=== PATIENT | female | born 1940 | race Caucasian/White ===

== ENCOUNTER 2019-12-06 13:03 | Outpatient (CLI) | payer MEDICARE, SELFPAY ==
[2019-12-06 15:40] LABS: Basophils Absolute Auto 0.12 K/mm3 (0.00-0.10); Eosinophils Absolute Auto 0.43 K/mm3 (0.02-0.50); Eosinophils Percent Auto 3.6 % (1.0-6.0); Hematocrit 44.2 % (35.0-42.0); Hemoglobin 13.7 g/dL (11.7-13.8); Immature Granulocyte Absolute 0.13 K/mm3 (0.00-0.00); Immature Granulocyte Percent A 1.1 % (0.0-0.0); Lymphocytes Absolute Auto 2.61 K/mm3 (1.10-4.50); Mean Corpuscular Hemoglobin 29.5 pg (27.0-31.0); Mean Corpuscular Volume 95.3 fL (78.0-102.0); Mean Platelet Volume 9.4 fl (9.2-11.8); Monocytes Absolute Auto 0.73 K/mm3 (0.10-0.90); Monocytes Percent Auto 6.1 % (2.0-11.0); Neutrophils Absolute Auto 7.9 K/mm3 (1.7-7.2); Neutrophils Percent Auto 66.2 % (50.0-70.0); Platelet Count Result 355 K/mm3 (150-420); Red Blood Count 4.64 M/mm3 (4.20-5.40); Red Cell Distribution Width 19.4 % (11.6-14.4); White Blood Count 11.9 K/mm3 (4.8-10.8)
[2019-12-06 16:33] LABS: Anion Gap 13.1 mmol/L (7-16); Blood Urea Nitrogen 23 mg/dL (7-18); Calcium 9.8 mg/dL (8.5-10.1); Carbon Dioxide 31 mmol/L (21-32); Chloride 103 mmol/L (98-108); Estimated Glomerular Filt Rate 40; Glucose 84 mg/dL (70-99); Osmolality Calculated 298 mOsm/kg (285-295); Potassium 4.1 mmol/L (3.5-5.1); Sodium 143 mmol/L (136-145)
== END 2019-12-06 13:04 | disposition home or self-care (01) ==
PROVIDERS: PCP Family Medicine; Visit Provider Specialist
DX: R19.7 Diarrhea, unspecified (principal); I10 Essential (primary) hypertension; D64.9 Anemia, unspecified; I48.91 Unspecified atrial fibrillation
CPT/HCPCS: 36415; 80048; 85025; 87324

== ENCOUNTER 2020-01-23 15:42 | Outpatient (CLI) | payer MEDICARE, SELFPAY ==
--- NOTE | ~2020-01-23 | XR_ITS ---
EXAMINATION: XR abdomen obstructive series EXAM DATE: 01/23/2020 16:11 INDICATION: Lower abdominal pain. TECHNIQUE: Frontal upright projection of the upper abdomen, frontal projection of the lower abdomen f or interpretation. There is no prior study for comparison. FINDINGS: There is expected amount of colonic stool and gas. No small bowel dilation, nonobstructiv e bowel gas pattern. There are no suspicious calcifications identified. There is no organomegaly suspected. There is moderate cervical lumbar dextroscoliosis. There is no free intraperitoneal air . The lung bases are clear. IMPRESSION: Unremarkable abdomen x-ray exam. Reviewed, dictated and finalized at location A.
[2020-01-23 15:59] LABS: Basophils Absolute Auto 0.12 K/mm3 (0.00-0.10); Basophils Percent Auto 0.9 % (0.0-1.0); Eosinophils Absolute Auto 0.27 K/mm3 (0.02-0.50); Eosinophils Percent Auto 2.1 % (1.0-6.0); Hemoglobin 11.1 g/dL (11.7-13.8); Immature Granulocyte Absolute 0.24 K/mm3 (0.00-0.00); Immature Granulocyte Percent A 1.9 % (0.0-0.0); Mean Corpuscular HGB Conc 30.8 g/dL (32.0-36.0); Mean Corpuscular Hemoglobin 31.7 pg (27.0-31.0); Mean Corpuscular Volume 102.9 fL (78.0-102.0); Mean Platelet Volume 9.1 fl (9.2-11.8); Monocytes Absolute Auto 0.88 K/mm3 (0.10-0.90); Monocytes Percent Auto 6.9 % (2.0-11.0); Neutrophils Percent Auto 70.2 % (50.0-70.0); Platelet Count Result 396 K/mm3 (150-420); Red Cell Distribution Width 17.5 % (11.6-14.4); White Blood Count 12.8 K/mm3 (4.8-10.8)
[2020-01-23 16:26] LABS: Add Urine Microscopic? YES; Appearance Urine Clear (Clear); Bilirubin Urine Negative (Negative); Blood Urine Negative (Negative); Color Urine Yellow (Yellow); Glucose Urine UA Negative (Negative); Ketones Urine Negative (Negative); Leukocyte Esterase Ur 1+ (Negative); Nitrate Urine Positive (Negative); Protein Urine Negative (Negative); Specific Grav Ur 1.015 (1.010-1.020); Urobilinogen Urine 0.2 mg/dL (0.2-1.0); pH Urine 6.5 (5.0-8.0)
[2020-01-23 16:32] LABS: RBC Urine None seen /hpf (0-2); Squamous Epithelial Cell Urine Few /hpf (Few); WBC Urine 0-3 /hpf (0-3)
[2020-01-23 16:33] LABS: Bacteria Urine 1+ /hpf
[2020-01-23 16:34] LABS: Budding Yeast Urine Present /hpf
[2020-01-23 16:42] LABS: Alanine Aminotransferase 14 U/L (14-59); Albumin Level 3.3 g/dL (3.4-5.0); Alkaline Phosphatase 106 U/L (46-116); Amylase 54 U/L (25-115); Anion Gap 12.1 mmol/L (7-16); Aspartate Amino Transferase 14 U/L (15-37); Bilirubin,Total 0.5 mg/dL (0.00-1.00); Blood Urea Nitrogen 22 mg/dL (7-18); Calcium 9.8 mg/dL (8.5-10.1); Carbon Dioxide 32 mmol/L (21-32); Chloride 104 mmol/L (98-108); Estimated Glomerular Filt Rate 30; Glucose 96 mg/dL (70-99); Lipase 107 U/L (73-393); Osmolality Calculated 301 mOsm/kg (285-295); Potassium 4.1 mmol/L (3.5-5.1); Sodium 144 mmol/L (136-145); Total Protein 6.9 g/dL (6.4-8.2)
== END 2020-01-23 15:43 | disposition home or self-care (01) ==
LOC: CHSLAB 15:45
PROVIDERS: PCP Family Medicine; Visit Provider Family Medicine
DX: R10.30 Lower abdominal pain, unspecified (principal)
CPT/HCPCS: 36415; 74019; 80053; 81001; 82150; 83690; 85025; 87086; 87088

== ENCOUNTER 2020-09-29 14:16 | Emergency (ER) | payer MEDICARE, SELFPAY ==
[2020-09-29 14:20] VITALS: BP 137/58; PULSE 56; RESP 20; TEMP 36.9; O2SAT 94
[2020-09-29 14:57] VITALS: PULSE 62; RESP 16
--- NOTE | 2020-09-29 14:59 | ED.GENADULT ---
HPI - General Adult General Chief complaint: Urogenital-Female Stated complaint: incontinance Source: patient and family Mode of arrival: ambulatory Limitations: dementia History of Present Illness HPI narrative: Aurora is an 80F with a PMH of bladder cancer s/p urostomy bag, afib, HTN, HLD, CHF was brought to the ED by her son needing emergency correction placement. Her son recently lost her caregiver and cannot take care of her on his own due to her demenitia, urostomy bag and other conditions. She responds to her name with simple answers but is not oriented to place or time. She has had no fevers, chills, nausea, vomiting, cough, CP, or change in mental status. She has diarrhea but has this all the time. Per her son she is at her baseline state of health and has no new medical concerns. He just needs an order for emergency admit to the correction they lost the caregiver. Review of Systems Review of Systems: ROS unobtainable: Yes unobtainable due to mental status Exam Const: General: no acute distress, alert and confusion Other: no acute distress HENMT: Other: normocephalic, atraumatic Eyes: Conjunctivae: conjunctivae normal Pupils: Equal, round and reactive pupils present Neck: Neck: normal visual inspection Chest: Chest palpation & inspection: normal inspection of the chest Resp: Effort & Inspection: normal respiratory effort Auscultation: clear to auscultation bilaterally Cardio: Rate: regular rate Rhythm: regular rhythm GI: GI Palp: Yes Soft to palpation, No Tenderness to palpation present (GI) and No Guarding due to palpation present (GI) : General: Yes no CVA tenderness Other: urostomy bag in place Urinary Catheter: Urinary Catheter: patent and draining Skin: General skin exam: normal color Rashes: no rashes Neuro: General: patient oriented x3 and moves all extremities Extrem: General: normal to inspection Course Course Emergency Course: Aurora Moss was evaluated. After evaluation it was clear that she could not care for herself. As she lost her caregiver she will need to be admitted to the nursing [facility]. An order was written to admit her to [facility], given to her son then she was discharged. Vital Signs Vital signs: Vital Signs Temperature 98.4 F 09/29/20 14:20 Pulse Rate 56 L 09/29/20 14:20 Respiratory Rate 20 09/29/20 14:20 Blood Pressure 137/58 L 09/29/20 14:20 Pulse Oximetry 94 09/29/20 14:20 Temperature 98.4 F 09/29/20 14:20 Pulse Rate 54 L 09/29/20 15:02 Respiratory Rate 20 09/29/20 15:23 Blood Pressure 137/58 L 09/29/20 14:20 Pulse Oximetry 99 09/29/20 15:23 Medical Decision Making Vital Signs Vital Signs: Vital Signs Temperature 98.4 F 09/29/20 14:20 Pulse Rate 56 L 09/29/20 14:20 Respiratory Rate 20 09/29/20 14:20 Blood Pressure 137/58 L 09/29/20 14:20 Pulse Oximetry 94 09/29/20 14:20 Temperature 98.4 F 09/29/20 14:20 Pulse Rate 54 L 09/29/20 15:02 Respiratory Rate 20 09/29/20 15:23 Blood Pressure 137/58 L 09/29/20 14:20 Pulse Oximetry 99 09/29/20 15:23 Discharge Plan Discharge Clinical Impression: Age-related physical debility Patient Disposition: SNF Condition: Stable Instructions: Failure to Thrive in Older Adults (ED) Additional Instructions: Please return to the emergency department for any new, concerning or worsening symptoms. Follow-up/Referrals: Sumanth Chadwick M.D. [Primary Care Provider] -
[2020-09-29 15:02] VITALS: PULSE 54; RESP 23
[2020-09-29 15:23] VITALS: RESP 20; O2SAT 99
== END 2020-09-29 15:15 ==
PROVIDERS: Emergency Provider Family Medicine; PCP Family Medicine
DX: R54 Age-related physical debility (principal)
CPT/HCPCS: 99281; 99282

== ENCOUNTER 2021-02-05 06:58 | Outpatient (NON) | payer MEDICARE, SELFPAY ==
[2021-02-05 07:25] LABS: Basophils Absolute Auto 0.12 K/mm3 (0.00-0.10); Basophils Percent Auto 1.2 % (0.0-1.0); Eosinophils Absolute Auto 0.37 K/mm3 (0.02-0.50); Eosinophils Percent Auto 3.7 % (1.0-6.0); Hematocrit 35.6 % (35.0-42.0); Hemoglobin 10.4 g/dL (11.7-13.8); Immature Granulocyte Absolute 0.44 K/mm3 (0.00-0.00); Immature Granulocyte Percent A 4.4 % (0.0-0.0); Immature Platelet Fraction Pct 0.6 % (1.0-7.0); Lymphocytes Absolute Auto 2.27 K/mm3 (1.10-4.50); Lymphocytes Percent Auto 22.7 % (18.0-42.0); Mean Corpuscular HGB Conc 29.2 g/dL (32.0-36.0); Mean Corpuscular Hemoglobin 28.5 pg (27.0-31.0); Mean Corpuscular Volume 97.5 fL (78.0-102.0); Mean Platelet Volume 8.9 fl (9.2-11.8); Monocytes Absolute Auto 0.69 K/mm3 (0.10-0.90); Monocytes Percent Auto 6.9 % (2.0-11.0); Neutrophils Absolute Auto 6.1 K/mm3 (1.7-7.2); Neutrophils Percent Auto 61.1 % (50.0-70.0); Platelet Count Result 584 K/mm3 (150-420); Red Blood Count 3.65 M/mm3 (4.20-5.40); Red Cell Distribution Width 15.6 % (11.6-14.4)
[2021-02-05 07:53] LABS: Alanine Aminotransferase 13 U/L (14-59); Albumin Level 2.4 g/dL (3.4-5.0); Alkaline Phosphatase 65 U/L (46-116); Anion Gap 4 mmol/L (8-16); Aspartate Amino Transferase 10 U/L (15-37); Bilirubin,Total 0.3 mg/dL (0.00-1.00); Blood Urea Nitrogen 12 mg/dL (7-18); Carbon Dioxide 34 mmol/L (21-32); Chloride 105 mmol/L (98-108); Estimated Glomerular Filt Rate 44; Glucose 74 mg/dL (70-99); Magnesium 1.9 mg/dL (1.8-2.4); Osmolality Calculated 294 mOsm/kg (285-295); Potassium 4.4 mmol/L (3.5-5.1); Sodium 143 mmol/L (136-145); Total Protein 5.6 g/dL (6.4-8.2)
== END 2021-02-05 06:59 | disposition home or self-care (01) ==
LOC: CHSLAB 06:59
PROVIDERS: Visit Provider Family Medicine
DX: E83.42 Hypomagnesemia (principal); I12.9 Hypertensive chronic kidney disease with stage 1 through stage 4 chronic kidney disease, or unspecified chronic kidney disease; N18.9 Chronic kidney disease, unspecified; I48.91 Unspecified atrial fibrillation
CPT/HCPCS: 36415; 80053; 83735; 85025; 85055